=== PATIENT | male | born 1995 | race African-American/Black ===

== ENCOUNTER 2017-05-02 21:48 | Emergency (ER) | payer OTHER ==
[2017-05-02 22:55] LABS: BASOPHIL 1.1 % (0-2); EOSINOPHIL 1.9 % (0-5); HCT 42.7 % (42.0-52.0); LYMPHOCYTE 44.8 % (15-48); MCH 23.3 pg (25.0-31.0); MCHC 32.8 g/dL (32.0-36.0); MCV 71.2 fL (78.0-100.0); MONOCYTE 7.3 % (0-12); MPV 9.5 fL (6.0-9.5); NEUTROPHIL 44.9 % (41-80); PLT 264 K/uL (150-400); WBC 6.3 K/uL (4.0-10.5)
[2017-05-02 22:55] LABS: BILIRUBIN NEGATIVE (NEGATIVE); BLOOD NEGATIVE Ery/uL (NEGATIVE); CLARITY CLEAR (CLEAR); COLOR YELLOW (YELLOW); GLUCOSE (U) NORMAL (NORMAL); KETONE (U) NEGATIVE (NEGATIVE); LEUKOCYTES 1+ Leu/uL (NEGATIVE); NITRITE NEGATIVE (NEGATIVE); PROTEIN NEGATIVE (NEGATIVE); SPECIFIC GRAVITY 1.015 (1.001-1.030)
[2017-05-02 23:04] LABS: BACTERIA 1+
[2017-05-02 23:05] LABS: MUCOUS TRACE
[2017-05-02 23:56] LABS: ALBUMIN 4.4 g/dL (3.5-5.0); BILIRUBIN - TOTAL 0.5 mg/dL (0.1-1.0); CREATININE 1.2 mg/dL (0.7-1.2); GLOBULIN (CALCULATION) 2.7 g/dL (2.2-4.2); POTASSIUM 3.9 mmol/L (3.5-5.1); TOTAL PROTEIN 7.1 g/dL (6.4-8.3)
== END 2017-05-03 02:06 | disposition left against medical advice (07) ==
LOC: FER 21:48
PROVIDERS: Emergency Medicine Emergency Medical Services
DX: R10.84 Generalized abdominal pain (principal); R11.2 Nausea with vomiting, unspecified; R19.7 Diarrhea, unspecified; E86.9 Volume depletion, unspecified; R82.90 Unspecified abnormal findings in urine; J45.909 Unspecified asthma, uncomplicated
CPT/HCPCS: 36415; 80053; 81001; 83690; 85025; 87088; 96372; J0500; J1885; J2405; Q9967

== ENCOUNTER 2017-05-03 18:22 | Emergency (ER) | payer OTHER | END 2017-05-03 18:54 | disposition left against medical advice (07) | LOC: FER 18:22 | DX: R10.9 Unspecified abdominal pain (principal); Z53.8 Procedure and treatment not carried out for other reasons ==

== ENCOUNTER 2017-05-04 02:09 | Inpatient (IN) | payer OTHER ==
[~2017-05-04] VITALS: Ht 180 cm; Wt 85.0 kg
[2017-05-04 03:03] LABS: ALBUMIN 4.3 g/dL (3.5-5.0); BILIRUBIN - TOTAL 0.4 mg/dL (0.1-1.0); CREATININE 1.1 mg/dL (0.7-1.2); GLOBULIN (CALCULATION) 2.8 g/dL (2.2-4.2); POTASSIUM 3.8 mmol/L (3.5-5.1); TOTAL PROTEIN 7.1 g/dL (6.4-8.3)
[2017-05-04 03:07] LABS: BASOPHIL 0.3 % (0-2); EOSINOPHIL 1.1 % (0-5); HCT 39.1 % (42.0-52.0); LYMPHOCYTE 26.2 % (15-48); MCH 23.7 pg (25.0-31.0); MCHC 33.2 g/dL (32.0-36.0); MCV 71.4 fL (78.0-100.0); MONOCYTE 8.5 % (0-12); NEUTROPHIL 63.9 % (41-80); PLT 234 K/uL (150-400); RBC 5.48 M/uL (4.70-6.00); RDW 13.8 % (11.5-14.0)
[2017-05-04 08:49] LABS: INR 1.23 (0.9-1.2); PROTHROMBIN TIME 15.1 SECONDS (11.7-14.0); PTT 34.3 SECONDS (23.2-31.4)
[2017-05-05 02:47] LABS: BILIRUBIN NEGATIVE (NEGATIVE); BLOOD TRACE-INTACT Ery/uL (NEGATIVE); CLARITY HAZY (CLEAR); COLOR YELLOW (YELLOW); GLUCOSE (U) NORMAL (NORMAL); KETONE (U) 1+ (SMALL) mg/dL (NEGATIVE); LEUKOCYTES 2+ Leu/uL (NEGATIVE); NITRITE NEGATIVE (NEGATIVE); PROTEIN NEGATIVE (NEGATIVE); UROBILINOGEN 0.2 mg/dL (0.2-1.0)
[2017-05-05 02:53] LABS: BACTERIA TRACE; URINARY WBC 20-50; YEAST PRESENT
[2017-05-05 06:18] LABS: BASOPHIL 0.2 % (0-2); EOSINOPHIL 0.8 % (0-5); HCT 35.3 % (42.0-52.0); HGB 11.4 g/dl (13.2-18.0); LYMPHOCYTE 19.3 % (15-48); MCH 23.1 pg (25.0-31.0); MCHC 32.3 g/dL (32.0-36.0); MCV 71.6 fL (78.0-100.0); MONOCYTE 7.5 % (0-12); MPV 9.6 fL (6.0-9.5); NEUTROPHIL 72.2 % (41-80); PLT 196 K/uL (150-400); RBC 4.93 M/uL (4.70-6.00); RDW 13.6 % (11.5-14.0); WBC 8.7 K/uL (4.0-10.5)
[2017-05-05 06:30] LABS: INR 1.38 (0.9-1.2); PROTHROMBIN TIME 16.5 SECONDS (11.7-14.0); PTT 31.2 SECONDS (23.2-31.4)
[2017-05-05 06:35] LABS: ALBUMIN 3.5 g/dL (3.5-5.0); BILIRUBIN - TOTAL 0.8 mg/dL (0.1-1.0); CREATININE 1.2 mg/dL (0.7-1.2); GLOBULIN (CALCULATION) 2.4 g/dL (2.2-4.2); MAGNESIUM 1.73 mg/dL (1.40-2.10); PHOSPHORUS 3.3 mg/dL (2.7-4.5); POTASSIUM 3.6 mmol/L (3.5-5.1); TOTAL PROTEIN 5.9 g/dL (6.4-8.3)
--- NOTE | 2017-05-05 14:06 | NUR ---
REVIEWED DISCHARGE INSTRUCTIONS AND APPT INFORMATION WITH PT VERBALIZED UNDERSTANDING
[2017-05-05] MEDS ORDERED: NORCO 5-325 TA1 EACH PO (15:36)
== END 2017-05-05 10:20 | disposition home or self-care (01) | DRG 342 ==
LOC: FER 02:09 → FMS 05:10
PROVIDERS: Emergency Medicine Emergency Medical Services; Surgery; ADMIT Internal Medicine Nephrology
PROC: 0DTJ4ZZ Resection of Appendix, Percutaneous Endoscopic Approach (ICD-10-PCS; principal; 2017-05-04 13:00)
DX: K35.80 Unspecified acute appendicitis (principal); A54.9 Gonococcal infection, unspecified; J45.909 Unspecified asthma, uncomplicated; R31.9 Hematuria, unspecified; A74.89 Other chlamydial diseases; A59.9 Trichomoniasis, unspecified; T83.098A Other mechanical complication of other urinary catheter, initial encounter
CPT/HCPCS: 36415; 72192; 76705; 80053; 81001; 83605; 83690; 83735; 84100; 85025; 85610; 85730; 88304; 93005; 94010; J1170; J1885; J2270; J2405; J2543; J2704; J3010